=== PATIENT | female | born 2000 | race Caucasian/White ===

== ENCOUNTER 2018-12-24 22:11 | Emergency (ER) | payer OTHER ==
[~2018-12-24] VITALS: Ht 157.5 cm; Wt 54.4 kg
[2018-12-24] MEDS ORDERED: FLUO10 PO (23:06)
== END 2018-12-24 23:09 | disposition home or self-care (01) ==
LOC: ER 22:11
DX: T39.391A Poisoning by other nonsteroidal anti-inflammatory drugs [NSAID], accidental (unintentional), initial encounter (principal); F32.9 Major depressive disorder, single episode, unspecified
CPT/HCPCS: 99283